=== PATIENT | male | born 1935 | race Caucasian/White ===

== ENCOUNTER 2019-05-19 11:52 | Inpatient (IN) ==
[2019-05-19 12:28] LABS: BASO# 0.03 X1000 (0.0-0.2); BASO% 0.4 % (0.0-0.8); MONO% 9.2 % (1.7-9.3)
--- NOTE | 2019-05-19 12:44 | Diag Imaging Result Doc PS360 ---
EXAM: CHEST-2 VIEWS HISTORY: weakness nausea TECHNIQUE: PA and Lateral chest x-ray COMPARISON: 09/14/2017 FINDINGS: There is cardiomegaly. Biapical pleural thickening. The pulmonary vasculature is not congested. Linear atelectasis or scarring left costophrenic angle. No infiltrate, effusion, or pneumothorax is appreciated. IMPRESSION: No acute cardiopulmonary abnormality is identified. Electronically signed by Yoselyn Brown 05/19/2019 12:42 PM
[2019-05-19 12:46] LABS: INR 0.94
[2019-05-19 12:50] LABS: ALBUMIN 4.3 g/dL (3.5-5.0); CALCIUM 9.2 mg/dL (8.8-10.2); CREATININE 1.9 mg/dL (0.7-1.2); TOTAL BILIRUBIN 0.2 mg/dL (0.20-1.00); TOTAL PROTEIN 7.4 g/dL (6.3-8.3)
[2019-05-19 13:10] LABS: EOS# 0.26 X1000 (0.0-0.7); EOS% 3.1 % (0.0-10.0); HEMATOCRIT 46.1 % (42.0-52.0); HEMOGLOBIN 15.1 g/dL (14.0-18.0); IMM GRAN# 0.07 X1000 (0.0-0.04); IMM GRAN% 0.8 % (0.0-0.5); LYMPH# 1.66 X1000 (1.2-3.4); LYMPH% 19.7 % (20.5-51.1); MCH 31.5 PG (27-31); MCHC 32.8 g/dL (33-37); MCV 96.2 FL (81-99); MONO# 0.77 X1000 (0.11-0.59); MPV 10.8 FL (7.4-10.4); NEUT# 5.62 X1000 (1.4-6.5); NEUT% 66.8 % (42.2-75.2); PLT 246 X1000 (130-400); RBC 4.79 XMIL (4.7-6.1); RDW 13.1 % (11.5-14.5); WBC 8.41 X1000 (4.8-10.8)
--- NOTE | 2019-05-19 17:18 | Vascular Study Report ---
Venous U/S Bilateral Legs - 05/19/2019 INDICATION: r/o dvt TECHNIQUE: COMPARISON: None FINDINGS: The veins of the lower extremities are fully compressible. There is normal color and pulse wave Doppler signal. Soft tissues are clear. IMPRESSION: Negative exam. Electronically signed by Napoleon Contreras 05/19/2019 5:15 PM
[2019-05-19] MEDS ORDERED: LOVENOX 1 MG/KG SUBQ ONE (18:01)
[2019-05-19] MEDS ORDERED: NS 2,000 ML IV ONE (18:05)
--- NOTE | 2019-05-19 18:13 | EKG Report ---
Test Performed on : 05/19/2019 12:10:39 PM Test Reason : weakness nauseab/p Blood Pressure : / mmHG Vent. Rate : 061 BPM Atrial Rate : 061 BPM P-R Int : 198 ms QRS Dur : 094 ms QT Int : 444 ms P-R-T Axes : 058 -11 072 degrees QTc Int : 446 ms Sinus rhythm. with premature supraventricular complexes. Inferior infarct (cited on or before 30-AUG-2017) Abnormal ECG When compared with ECG of 13-SEP-2017 15:24, premature supraventricular complexes. are now present Nonspecific T wave abnormality, improved in Inferior leads QT has shortened Unconfirmed Result
[2019-05-19] MEDS ORDERED: CORDARONE PO ONE (18:15)
[2019-05-19] MEDS ORDERED: LOVENOX ONE (18:19)
[2019-05-19] MEDS ORDERED: TYLENOL PO ONE (18:19)
[2019-05-19] MEDS ORDERED: PLAVIX PO ONE (20:25)
[2019-05-19] MEDS ORDERED: TYLENOL PO PRN (21:51)
--- NOTE | 2019-05-20 09:05 | Diag Imaging Result Doc PS360 ---
EXAM: LUNG SCAN / VQ - 05/19/2019 HISTORY: dizziness TECHNIQUE: Lung ventilation and perfusion scan. Ventilation images performed using 40.8 mCi technetium 99m DTPA aerosol inhaled. Perfusion images performed using 5.8 mCi technetium 99m MAA administered intravenously. Ventilation perfusion images are obtained in multiple projections over the lungs. COMPARISON: None. FINDINGS: There is no perfusion defect identified. There is no ventilation/perfusion mismatch identified. IMPRESSION: No evidence of pulmonary embolism. Electronically signed by Naveen Hamilton 05/20/2019 9:03 AM
[2019-05-20] MEDS ORDERED: SOLU-MEDROL IV ONE (09:44)
[2019-05-20] MEDS: TOPROL XL PO SCH (10:38)
[2019-05-20] MEDS: CORDARONE PO SCH (10:38)
[2019-05-20] MEDS: LIPITOR PO SCH (10:38)
[2019-05-20] MEDS: ASPIRIN PO SCH (10:38)
[2019-05-20] MEDS: PLAVIX PO SCH (10:38)
[2019-05-20] MEDS: NORVASC PO SCH (10:38)
--- NOTE | 2019-05-20 13:21 | Diag Imaging Result Doc PS360 ---
EXAM: CT HEAD W/O CONTRAST - 05/20/2019 HISTORY: dizziness, weakness TECHNIQUE: CT head without contrast COMPARISON: 08/30/2016 FINDINGS: There are atrophic changes and chronic microvascular ischemic changes similar to prior. There is no evidence of recent infarct, although acute infarcts may not be immediately visible. There is no evidence of intracranial hemorrhage, mass effect, or midline shift. There is no evidence of skull fracture. IMPRESSION: No visible acute intracranial abnormality. No hemorrhage or mass effect. This exam was performed using automated exposure control, adjustment of mA or kV according to patient size, and/or use of iterative reconstruction technique. Electronically signed by Naveen Hamilton 05/20/2019 1:19 PM
--- NOTE | 2019-05-20 13:53 | HISTORY AND PHYSICAL ---
ADDENDUM: The patient was seen and examined by myself. Full note dictated and discussed with nurse practitioner. The patient initially presented to the hospital with vertigo. Noted that he had, had dizziness. He actually fell into a table. He was unable to ambulate. His blood pressures were elevated at 184/106. He also was noted to have an elevated D-dimer. Thankfully, the V/Q scan as well as his lower extremity Doppler were negative. He has chronic renal failure, with a creatinine of 1.9, which is likely the cause of his elevation in the D-dimer. I am going to admit him to the hospital, treat him for vertigo. I expect that he has had a low-grade fever, so expect that he has had a mild sinus infection or inner ear. We are going to place him on antibiotics. We will try steroids and we will follow. cc: Jef Mederos MD
[2019-05-20] MEDS ORDERED: MOTRIN PO PRN (13:55)
--- NOTE | 2019-05-20 16:03 | HISTORY AND PHYSICAL ---
PRIMARY CARE PROVIDER: Dr. Gordy Douglas. CHIEF COMPLAINT: Weakness and vertigo. HISTORY OF PRESENT ILLNESS: Mr. Castillo is an 84-year-old male who carries a past medical history of right knee replacement x2, prostate cancer, coronary artery disease with MA, hypertension, sleep apnea, who presented to the [facility] campus complaining of dizziness and feeling off balance and stated he was placed on a new medication and only took 1 dose 3 nights prior and since that time has had intermittent episodes of dizziness and falling. He also has had a headache for 3 days that has improved with the reduction of his blood pressure. Workup in the ED revealed an elevated D-dimer so he underwent bilateral lower extremity Dopplers but was negative. This a.m. he underwent a V/Q scan that showed no evidence of PE. Family is requesting further neurological workup for which we have already ordered a head CT, carotid Dopplers and an echocardiogram for. He does appear to have an acute kidney injury on chronic kidney disease. His troponins have been negative. PAST MEDICAL HISTORY: 1. Hyperlipidemia. 2. Prostate cancer. 3. Coronary artery disease. 4. Myocardial infarction. 5. Hypertension. 6. Obstructive sleep apnea. 7. Gallstones x3. PAST SURGICAL HISTORY: 1. Right knee replacement x2. 2. I and D of the right knee. 3. Two cardiac stents. 4. Aortic aneurysm repair with stent by Vascular Surgery. 5. PICC line placement and removal. SOCIAL HISTORY: Quit smoking in 1984. Prior to that he smoked 31 years, less than 1 pack per day. Beer on a rare occasion. No illicit drugs. He is a and has 4 children. FAMILY HISTORY: Denies. REVIEW OF SYSTEMS: Twelve-point review of systems complete and negative except for those mentioned in HPI. ALLERGIES: No known drug allergies. HOME MEDICATIONS: 1. Aspirin 81 mg p.o. daily. 2. Amlodipine/atorvastatin Caduet 5 mg 40 mg tablet 1 tablet p.o. daily. 3. Amiodarone 200 mg p.o. daily. 4. Lunesta 3 mg p.o. at bedtime. 5. Multivitamins 1 each p.o. daily. 6. Niacin ER 1000 mg p.o. at bedtime. 7. Plavix 75 mg p.o. daily. 8. Prilosec 20 mg p.o. daily. 9. Toprol-XL 25 mg p.o. daily. PHYSICAL EXAMINATION: VITAL SIGNS: Temperature is 97.6 degrees, heart rate 57, respirations 18, blood pressure 162/69, O2 is 94% on room air. ASSESSMENT AND PLAN: 1. Weakness, vertigo, dizzy, falling. Pulmonary embolism was ruled out. He was given a dose of IV steroids to see if he had any improvement. Possible inner ear issues versus cerebrovascular accident. We will also check orthostatics. Continue to monitor him on telemetry for any arrhythmias. We will check a head CT, carotid Dopplers and echocardiogram. The patient does not show any focal deficit and family reports no unilateral weakness, slurring of the speech and drooping of the face. 2. Coronary artery disease status post myocardial infarction. He is not complaining of any chest pain. His cardiac enzymes are negative. 3. Hypertension. We are going to check orthostatics. Continue home medications. 4. Acute kidney injury on chronic kidney disease. We will continue with IV fluids and recheck his kidney function in the a.m. 5. Further recommendation to follow physician evaluation, laboratory and diagnostic data. Dictated by NÉSTOR Matute for Jef Mederos MD cc: Jef Mederos MD MTDD
[2019-05-20] MEDS ORDERED: NORCO-5 PO PRN (16:51)
[2019-05-20] MEDS ORDERED: ANTIVERT PO PRN (16:53)
[2019-05-20] MEDS ORDERED: ZOFRAN PO PRN (17:03)
[2019-05-20] MEDS: ZOFRAN ODT PO PRN ×2 (18:07→21:50)
[2019-05-20] MEDS: NIASPAN PO SCH (22:17)
[2019-05-20] MEDS: LUNESTA PO SCH (22:17)
[2019-05-21] MEDS: PRILOSEC PO SCH (06:19)
[2019-05-21] MEDS: ASPIRIN PO SCH (08:43)
[2019-05-21] MEDS: LIPITOR PO SCH (08:43)
[2019-05-21] MEDS: PLAVIX PO SCH (08:43)
[2019-05-21] MEDS: NORVASC PO SCH (08:43)
[2019-05-21] MEDS: CORDARONE PO SCH (08:43)
--- NOTE | 2019-05-21 09:45 | ECHO REPORT ---
ORDER DATE: 05/20/2019 INTERPRETING PHYSICIAN: Dr. Cárdenas REQUESTING PHYSICIAN: Hospitalist at [facility] CLINICAL INDICATIONS: This is an 84-year-old male with weakness, dizziness, chronic kidney disease. M-MODE MEASUREMENTS: Right ventricle: cm. Left ventricle end diastole: 5.3 cm. Left ventricle end systole: 3.6 cm. Posterior wall: 1.2 cm. Interventricular septum: 1.2 cm. Left atrium: 4.5 cm. Aortic root: cm. SUMMARY OF 2-DIMENSIONAL IMAGIN. Left ventricular function is normal. Ejection fraction is estimated at 57%. The chamber is mildly enlarged. No wall motion abnormality is noted. 2. Aortic valve shows sclerosis of the cusps. There is no stenosis. Maximum gradient across this valve is 16 mmHg. Mean gradient is 9 mmHg. Color flow mapping showed mild degree of regurgitation. 3. Mitral valve opens normally. Color flow mapping shows no significant regurgitation. 4. Pulse wave Doppler of mitral inflow shows normal E/A ratio. Tissue Doppler of septal and lateral mitral annulus averages 9 cm. 5. There is no diastolic dysfunction. 6. Pulmonic valve looks normal. Color flow mapping is unremarkable. Pulmonary valve is unremarkable. 7. Tricuspid valve shows mild degree of regurgitation. 8. Pulmonary pressure is estimated at 35 mmHg. 9. There is no pericardial effusion, mass or thrombus. Clinical correlation is recommended. cc: Yaya Cárdenas MD
--- NOTE | 2019-05-21 10:35 | EKG Report ---
Test Performed on : 05/21/2019 09:10:48 AM Test Reason : HEART CHANGES Blood Pressure : / mmHG Vent. Rate : 058 BPM Atrial Rate : 058 BPM P-R Int : 228 ms QRS Dur : 094 ms QT Int : 464 ms P-R-T Axes : 066 009 137 degrees QTc Int : 455 ms Sinus bradycardia. with 1st degree AV block. with premature atrial complexes. Inferior infarct (cited on or before 30-AUG-2017) Abnormal ECG When compared with ECG of 19-MAY-2019 12:10, (Unconfirmed) NC interval has increased Unconfirmed Result
[2019-05-21 11:12] LABS: HEMATOCRIT 43.3 % (42.0-52.0); HEMOGLOBIN 14.2 g/dL (14.0-18.0); MCH 31.7 PG (27-31); MCHC 32.8 g/dL (33-37); MCV 96.7 FL (81-99); MPV 10.6 FL (7.4-10.4); RBC 4.48 XMIL (4.7-6.1); WBC 16.06 X1000 (4.8-10.8)
[2019-05-21 11:39] LABS: ALBUMIN 3.8 g/dL (3.5-5.0); CREATININE 2.2 mg/dL (0.7-1.2); MAGNESIUM 2.2 mg/dL (1.5-2.7); TOTAL BILIRUBIN 0.2 mg/dL (0.20-1.00)
[2019-05-21 14:04] LABS: URINE SOURCE CLEAN CATCH
[2019-05-21 14:18] LABS: BILIRUBIN URINE NEGATIVE (NEGATIVE); BLOOD URINE NEGATIVE (NEGATIVE); CLARITY CLEAR (CLEAR); COLOR YELLOW; GLUCOSE URINE NEGATIVE (NEGATIVE); KETONE URINE NEGATIVE (NEGATIVE); LEUKOCYTES URINE NEGATIVE (NEGATIVE); NITRITE URINE NEGATIVE (NEGATIVE); PROTEIN URINE NEGATIVE (NEGATIVE); SP GRAVITY URINE 1.015; UROBILINOGEN URINE NORMAL
[2019-05-21] MEDS: TOPROL XL PO SCH (14:33)
--- NOTE | 2019-05-21 14:54 | CARDIOLOGY CONSULTATION ---
DATE: 05/21/2019 REQUESTING PHYSICIAN: Consultation requested by Dr. Mederos, hospitalist service. REASON FOR CONSULTATION: Patient with dizziness, unsteadiness, hypertension uncontrolled. HISTORY: Mr. Castillo is an 84-year-old, male who is known to me and also a patient of Dr. Douglas. He presented to the ER on May 19 around [facility]. He said that he had been to see Dr. Douglas a few days ago because he was having bladder incontinence. He was prescribed a dose of Myrbetriq of which he took 2 nights prior to admission. He said that he woke up in the middle of the night to go to the bathroom and then he found himself almost bumping into the meek. His balance was very poor. The next night, a similar incident happened. He got up and this time he fell, injuring his shoulder blade. He did not hit his head. Because of that, he decided to come to the emergency room for evaluation at [facility] on May 19. They did a head CT that shows no visible acute intracranial abnormality. His blood pressure at the time of initial encounter in the ER was very high, 219/90. Subsequently, it has gradually dropped. However, it has been running as high as 188/83 and today it has dropped into the 140s. He has not experienced any chest pain, shortness of breath, or syncope. He denies having vertigo, either subjective or objective. A chest x-ray was done that showed no acute pulmonary abnormalities. They did a D-dimer that was 2.46. Because of that, a V/Q scan of the lungs was done which reported no perfusion defects. An echocardiogram was done yesterday which I read and it showed an ejection fraction of 57% with some sclerosis of the aortic valve. No diastolic dysfunction. Pulmonary systolic pressure was 35 mmHg. Echocardiogram was relatively unremarkable. He has had troponin levels checked, a total of two, and a proBNP level was checked once. It is slightly elevated at 712 pcg/mL. However, his creatinine level is 1.9 on the day of admission and 2.2 today. He is just laying in bed, feeling fine. However, this morning, the physical therapist came to the room to help him stand up and he felt very unsure about taking a few steps. He decided to stay in bed. He feels like his balance is not back to normal. PAST MEDICAL HISTORY: Significant for coronary heart disease. In 2016, he suffered a myocardial infarction in association with some diarrhea and an acute viral infection. They ended up putting a stent to the right coronary artery. The equal opportunity assistant described a lot of thrombus in the vessel. The patient has aortic sclerosis. He has a history of paroxysmal atrial fibrillation. He has hypertension. He has osteoarthritis of the knee. He has a history of some bladder dysfunction following prostate surgery, a question of sleep apnea. SURGICAL HISTORY: Includes carotid endarterectomy on the left side. He has had repeated knee surgery because of an infection of the knee with pseudomonas. He required long- term antibiotics for several months last year. He has had a stent to the left kidney, a tonsillectomy. SOCIAL HISTORY: He is . He has four grownup children. One daughter was in the room present. FAMILY HISTORY: Positive for coronary heart disease in his father and brother. HOME MEDICATIONS: Listed at this time included amiodarone 200 mg daily, amlodipine with atorvastatin 5/40 daily, aspirin 81 daily, Plavix 75 daily, Lunesta 3 mg at bedtime, metoprolol-XL 25 daily, multivitamins daily, niacin 1000 at bedtime, omeprazole 10 mg daily. ALLERGIES: Negative. REVIEW OF SYSTEMS: The patient basically has been doing well. He says that during the summer, he has been active, mowing his lawn and doing all kinds of physical tasks without major limitations. Since his last visit with me in November of 2018 up until the onset of the symptoms that prompted his admission, he has not experienced any change in his condition. The only thing was the presence of bladder dysfunction with incontinence which led to the administration of Myrbetriq and the subsequent ER presentation. PHYSICAL EXAMINATION: Vital Signs: Blood pressure 143/63, temperature 97.7 degrees, pulse 59, respirations 20. The patient is awake, alert, in no distress. HEENT: Normal. Chest sounds clear to auscultation and percussion. Heart sounds are regular in rhythm. I do not hear a gallop or murmur. Abdomen: Obese, nontender. Extremities show good pulses. No significant edema. Neurologic Examination: Nonfocal. Moves 4 extremities. IMPRESSION: 1. Patient who presents with relatively sudden onset of unsteadiness with uncontrolled hypertension. This happened after the intake of a drug, Myrbetriq.Question of Brainstem CVA. 2. History of severe coronary heart disease, status post stents. 3. History of hypertension. 4. Chronic kidney disease. 5. Sleep apnea syndrome. 6. Osteoarthritis, status post knee replacement. 7. Obesity with a body mass index of 37.4. 8. History of hyperlipidemia. 9. History of carotid artery disease. RECOMMENDATIONS: At this time, I would suggest to observe him in the hospital. MRI of the brain has been requested. His symptoms are raising concern for the possibility of subcortical stroke or cerebellar stroke that may be causing him to lose his balance. At this time, probably the best thing is to just continue to monitor blood pressure before we make changes. An LI inhibitor will be appropriate. However, his renal function will have to be monitored very closely. At this time, I do not think we need to pursue a stress test because it is not going to help us in dealing with his unsteadiness. I would strongly recommend to consider getting a neurology consultation if the patient continues to have issues with poor balance. We will arrange for office followup upon discharge. cc: Yaya Cárdenas MD [facility]
--- NOTE | 2019-05-21 16:41 | PROGRESS NOTE ---
DATE: 05/21/2019 SUBJECTIVE: The patient notes that he still gets dizzy with any sitting up or attempting to stand. States he is too dizzy to physically sit up in the bed. The staff does note that he had a couple of 2 second pauses overnight. OBJECTIVE: Vital signs: Temperature 97.7, pulse 57, respiratory rate 18, BP 144/69. General: Patient is an awake, alert, obese male who is in no respiratory distress. He is lying in bed. While he is lying flatly in the bed, he states he is not dizzy. HEENT: Normocephalic. Neck: Supple. Cardiovascular: Regular rate. No apparent murmurs. No pauses noted during exam. Abdomen: Soft, obese, nondistended. Extremities: Moves all extremities. Neurologic: No changes. He is awake, alert, oriented x3. Skin: Warm, dry. No rashes. ASSESSMENT: 1. Bradycardia. He currently is on amiodarone as well as Toprol. He apparently had been on Toprol 100 and that had been decreased recently to Toprol 25. At this point, we are going to hold his Toprol and we will continue to follow. Continue him on telemetry. We will continue amiodarone for now, although we will consult Cardiology for assistance. 2. Vertigo. Appears to change as he sits up. 3. History of prostate cancer. 4. Known coronary artery disease. 5. Hypertension. 6. Obstructive sleep apnea. PLAN: We are going to stop his Toprol. Continue on telemetry and continue to follow. We will discuss with Cardiology and further orders as [*]. cc: Jef Mederos MD
[2019-05-21] MEDS: NIASPAN PO SCH (21:27)
[2019-05-21] MEDS: LUNESTA PO SCH (21:28)
[2019-05-21] MEDS ORDERED: MILK OF MAGNESIA PO PRN (21:45)
[2019-05-22] MEDS: PRILOSEC PO SCH (06:31)
[2019-05-22] MEDS: LIPITOR PO SCH (09:20)
[2019-05-22] MEDS: ASPIRIN PO SCH (09:21)
[2019-05-22] MEDS: PLAVIX PO SCH (09:21)
[2019-05-22] MEDS: NORVASC PO SCH (09:21)
[2019-05-22] MEDS: CORDARONE PO SCH (09:21)
[2019-05-22] MEDS: TOPROL XL PO SCH (09:21)
--- NOTE | 2019-05-22 10:51 | Vascular Study Report ---
EXAM: Carotid Ultrasound HISTORY: weakness dizziness TECHNIQUE: Grayscale, duplex, and color Doppler evaluation was performed of the carotid arteries bilaterally. Standard protocol. COMPARISON: None. FINDINGS: There is moderate calcific atherosclerotic plaque. There are no velocity elevations to suggest hemodynamically significant carotid artery stenosis. However, there is diminished velocity with a high resistance waveform within the proximal left internal carotid artery may indicate high-grade stenosis. ICA/CCA ratios are within normal limits, 1.48on the right and 0.69. Bilateral vertebral arterial flow is antegrade. IMPRESSION: Decreased velocity with abnormal waveform left internal carotid artery may indicate carotid stenosis. Consider further evaluation with CTA or MRA. Electronically signed by Yoselyn Brown 05/22/2019 10:49 AM
--- NOTE | 2019-05-22 14:11 | Diag Imaging Result Doc PS360 ---
MRI BRAIN W/O CONTRAST - 05/22/2019 INDICATION: dizziness weakness r/o cva COMPARISON: Head CT 05/20/2019 FINDINGS: There is no area of restricted diffusion. There is severe, diffuse cerebral atrophy. There is also moderately advanced periventricular white matter hyperintensity compatible with chronic microvascular ischemia. No intracranial mass or hemorrhage. Midline structures are unremarkable. IMPRESSION: Advanced chronic changes. No acute process. Electronically signed by Napoleon Contreras 05/22/2019 2:09 PM
--- NOTE | 2019-05-22 14:13 | Diag Imaging Result Doc PS360 ---
MRA BRAIN W/O CONTRAST - 05/22/2019 INDICATION: dizziness, r/o cva TECHNIQUE: Noncontrast time of flight technique was used COMPARISON: None FINDINGS: There is mild narrowing of the supraclinoid internal carotid arteries bilaterally. There is about 30% narrowing on both sides. The major cerebral arteries are patent and normal in contour. The vertebral and basilar arteries are normal. The posterior cerebral arteries are patent. There is origin of the left posterior cerebral artery. IMPRESSION: Mild vascular disease with mild stenosis of the supraclinoid internal carotid arteries bilaterally. Electronically signed by Napoleon Contreras 05/22/2019 2:11 PM
--- NOTE | 2019-05-22 19:44 | CONSULTATION ---
DATE OF CONSULTATION: 05/22/2019 Mr. Castillo is 84 years old and he reports recent fairly abrupt onset of headache, unsteady gait, tendency to fall. He got up to the bathroom in the nighttime 5 nights ago and was very unsteady. He continued unsteady through the next day and had to have even more help getting to the bathroom the next night. He presented to the hospital and was admitted 3 days ago. He describes a feeling of dizziness. This is hard for him to describe more precisely. At one point, he thought there was some lightheadedness when he sat up, but then said he felt better when he stood. He has noticed a sense of unsteadiness with a wobbly gait, drunk feeling, a sense that he might fall, particularly a sense of falling backward. He has not noticed any change in hearing. He has not noticed dizziness with head turning while reclined. Noncontrast CT of the head showed typical age-related changes but nothing focal or acute and no bleeding. Brain MRI today done without contrast shows moderately advanced diffuse white matter changes but nothing focal or acute and specifically, no definite brainstem or cerebellar lesion. Brain MRA was unremarkable. Systolic blood pressure was initially 219, later 140s-180s. Heart rate has ranged 50s to 60s. He has not had clinically recognized or diagnosed stroke, seizure, other neurologic event. He has had a few falls and once injured his face and broke his nose, but there was not altered consciousness. He reports past history of ischemic heart event. He has longstanding hypertension and dyslipidemia. He does not have diabetes mellitus. He reports diagnosis of peripheral neuropathy 20 years ago with no definite etiology ever determined. He used to use ethanol more regularly but for many years that use has been minimal. There is not family history of cerebellar atrophy or gait difficulty. On exam, he is awake, alert, attentive and appropriate. Speech is not dysarthric. Language function is intact. Memory is good. Head and neck are unremarkable. Visual hernández are full. Extraocular movements are full without significant nystagmus. Facial motility is symmetric. Gag is intact. Tongue is midline. Hearing is poor. Shoulder shrug is good bilaterally. Strength is normal in the arms and legs. He did well on [id number] testing bilaterally. While supine, he did well on [id number] testing bilaterally. When he stands, gait is immediately very wide-based and unsteady. He would fall if not assisted. He reports retropulsion and requires firm hand on his back to be comfortable. Romberg is absent. He was not any more unsteady with eyes closed than with eyes open whether standing with feet at shoulder width or with feet wider than shoulder width. He has some difficulty placing his feet properly for heel-to-toe tandem walking but with vigorous assistance he was able to manage that. He reports good sensation over the hands. Sensation is grossly intact over the feet but with more careful testing, there does appear to be a minor stocking pattern of sensory loss. Proprioception is good at the great toe MTP joint and at the index finger PIP joint bilaterally. IMPRESSION: 1. 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 He performs cerebellar testing well while seated or supine. This would usually be attributed to midline cerebellar problem. I do not find definite loss of proprioception to suggest spinal ataxia. Reason for cerebellar dysfunction is not clear. This may be related to his elevated blood pressure. Negative MRI is reassuring. I do not think we need any further workup right now. Later, depending on his clinical course, we might consider contrast MRI. I encouraged him to be careful with activities, particularly activities requiring gait. I asked him not to be up out of bed in the hospital without assistance. I encouraged him to take his medicines as directed and to keep followup with Dr. Douglas after discharge. If he does not seem significantly improved within a month or 6 weeks, I would like to see him as an outpatient to follow up. I discussed that suggestion with Mr. Castillo and his . 2. He has minimal clinical findings consistent with peripheral neuropathy and he reports diagnosis of peripheral neuropathy many years ago. With peripheral neuropathy, he will have greater falling risk with his ataxia than if he did not have neuropathy. Reason for neuropathy is not certain. He has had a few mildly elevated blood sugars and we discussed diabetes mellitus as the statistically most likely explanation for peripheral neuropathy in his age group in this country. I do not think further workup of neuropathy would global director air and climate change right now. 3. With his chronic poor hearing, degenerative neuro-otologic problem would be another consideration but the abrupt onset of current syndrome suggests this is not solely degenerative neuro-otologic problem. Meclizine could be continued as a trial but he has not noted definite benefit with meclizine here in the hospital. ENT referral could be considered later. Thanks for asking Neurology to see Mr. Gang Sawyer. cc: MD JOSSELYN Campuzano III
[2019-05-22] MEDS: NIASPAN PO SCH (22:29)
[2019-05-22] MEDS: LUNESTA PO SCH (22:29)
--- NOTE | 2019-05-23 01:30 | PROGRESS NOTE ---
DATE: 05/22/2019 SUBJECTIVE: The patient notes that his dizziness is actually better this morning. He notes that he is only having dizziness when he sits up or stands up, but does not have dizziness while he is lying flat on the bed, nor does he have dizziness when he turns his head [id number]. OBJECTIVE: Vital Signs: Reviewed. Temperature 97 degrees, pulse 57, respiratory rate 20, BP 144/69. General: The patient is awake. He is very pleasant. He is lying flatly in the bed for which he states he has no dizziness while he is lying. He does note that his dizziness worsens when he sits up or stands up. In fact he states that his dizziness is better since stopping his Toprol yesterday. HEENT: Normocephalic. Neck: Supple. Cardiovascular: Regular rate Chest: Clear and nonlabored. Abdomen: Soft and nondistended. Extremities: He moves all extremities. Neurologic: Dizziness. Certainly Toprol could be the culprit here as he had some lower heart rates, had a couple of times where he had 2 second pauses, and he states that the dizziness is better today. The only thing we did yesterday was hold his Toprol; however, Cardiology is adamant that Toprol will be started back. They state that the Toprol should not be causing his vertigo and that he needs a Neurology consultation. ASSESSMENT: 1. Vertigo. 2. Coronary disease status post TX. 3. Hypertension. 4. Hyperlipidemia. 5. Several episodes of Bradydysrhythmia last night with a couple of episodes of 2 second pauses. PLAN: Given the insistence of Cardiology we are going to restart Toprol, although we will monitor again today to make sure that dizziness does not worsen and we will try to get an MRI with an MRA and we will follow. The patient has a leukocytosis at 16 for some unknown reason. We will continue to follow. cc: Jef Mederos MD
[2019-05-23] MEDS: PRILOSEC PO SCH (06:13)
[2019-05-23] MEDS: TOPROL XL PO SCH (09:07)
[2019-05-23] MEDS: LIPITOR PO SCH (09:07)
[2019-05-23] MEDS: CORDARONE PO SCH (09:08)
[2019-05-23] MEDS: PLAVIX PO SCH (09:08)
[2019-05-23] MEDS: NORVASC PO SCH (09:08)
[2019-05-23] MEDS: ASPIRIN PO SCH (09:09)
[2019-05-23 10:28] LABS: HEMATOCRIT 44.7 % (42.0-52.0); HEMOGLOBIN 14.6 g/dL (14.0-18.0); MCH 31.6 PG (27-31); MCHC 32.7 g/dL (33-37); MCV 96.8 FL (81-99); MPV 10.7 FL (7.4-10.4); RBC 4.62 XMIL (4.7-6.1); RDW 13.1 % (11.5-14.5); WBC 8.71 X1000 (4.8-10.8)
[2019-05-23 10:38] LABS: ALBUMIN 3.8 g/dL (3.5-5.0); CREATININE 2.1 mg/dL (0.7-1.2); POTASSIUM 4.6 mmol/L (3.5-5.1); TOTAL BILIRUBIN 0.3 mg/dL (0.20-1.00); TOTAL PROTEIN 7.1 g/dL (6.3-8.3)
[2019-05-23] MEDS: NIASPAN PO SCH (21:09)
[2019-05-23] MEDS: LUNESTA PO SCH (21:09)
[2019-05-24] MEDS: PRILOSEC PO SCH (06:02)
[2019-05-24] MEDS: CORDARONE PO SCH (09:41)
[2019-05-24] MEDS: PLAVIX PO SCH (09:42)
[2019-05-24] MEDS: TOPROL XL PO SCH (09:42)
[2019-05-24] MEDS: NORVASC PO SCH (09:42)
[2019-05-24] MEDS: LIPITOR PO SCH (09:42)
[2019-05-24] MEDS: ASPIRIN PO SCH (09:42)
[2019-05-24 11:18] VITALS: BP 131/61
--- NOTE | 2019-05-24 12:26 | PROGRESS NOTE ---
DATE: 05/24/2019 SUBJECTIVE: The patient has no major complaints. His dizziness has overall improved. OBJECTIVE: Vital Signs: Blood pressure is 136/65, heart rate 52, respiratory rate 18, temperature 98.5 degrees. Cardiovascular: Regular rate and rhythm. Pulmonary: Bilateral breath sounds. Clear to auscultation. GI: Soft, nontender, nondistended. Bowel sounds are positive. LABORATORY DATA: White count of 8, which is down from 16. Hemoglobin and hematocrit 14 and 42. Platelets 242,000. Creatinine 2.1. PROBLEM LIST: 1. Dizziness, vertigo. He does seem to be improving on meclizine now, and he seems to be doing okay. 2. Bradycardia. He is on amiodarone and Toprol, and is stable. He has not had any further significant issues there. 3. Ataxia. That seems to be improving. MRI was unremarkable, so anticipate with progression and physical therapy, he will be able to go home with physical therapy tomorrow. They do recommend ENT referral, I think. Neurology followup with Dr. Pearl. 4. Discharge condition is stable. cc: Lucho Luis MD
--- NOTE | 2019-05-24 14:13 | DISCHARGE SUMMARY ---
ADMISSION DATE: 05/21/2019 DISCHARGE DATE: 05/24/2019 DISCHARGE DIAGNOSIS: 1. Benign positional vertigo. 2. Hypertension. 3. Hyperlipidemia. 4. Bradyarrhythmia in the setting of atrial fibrillation. 5. Weakness. CONSULTATIONS: Cardiology, Yaya Cárdenas MD. PROCEDURES: None. Briefly, this is an 84-year-old male presenting with dizziness and feeling off balance. D-dimer was elevated so they pursued a V/Q scan that was negative and Dopplers. Head CT was unremarkable. Carotid Doppler said possible carotid stenosis, consider CTA or MRA. His MRA did not show major blockage, 30% narrowing of the supraclinoid internal carotid arteries so not significant enough to be amenable to any treatment. Cardiology was consulted I guess because of the unsteadiness. MRI was obtained but there was no stroke, and a Neurology consult was pursued. MRI did not show any stroke but chronic changes. Dr. Pearl recommended PT and management. Did not feel like this was a stroke, may be related to neuropathy, possibly neuro-otological problems and they recommended followup with ENT. The patient improved. He ambulated very well with PT. Will setup home PT and see how he does. DISCHARGE MEDICATIONS: Aspirin 81 daily, amiodarone 200 daily, atorvastatin 40 daily, Plavix 75 daily, multivitamin daily, Lunesta 3 at night, niacin 1 g q.24, Prilosec 20, Toprol XL 25, and will also give him meclizine 25 t.i.d. DISCHARGE CONDITION: Stable. Please follow up with his PCP, Dr. Pearl, and Ears, Nose and Throat specialist as well. cc: Lucho Luis MD
== END 2019-05-24 13:53 | disposition home health service (06) | DRG 149 ==
LOC: P.ED 11:52 → P.MEDSURG 11:52 → SUATTDRO 05-21 12:12
PROVIDERS: ATTEND Internal Medicine